=== PATIENT | female | born 1985 | race Caucasian/White ===

== ENCOUNTER 2019-08-30 20:04 | Emergency (ER) | payer BC, OTHER ==
[~2019-08-30] VITALS: Ht 170.2 cm; Wt 96.6 kg
--- NOTE | 2019-08-30 20:33 | NUR ---
URINE COLLECTED AND SENT TO LAB
--- NOTE | 2019-08-30 20:40 | NUR ---
BIBSELF C/O R FLANK PAIN X3 WEEKS, PROGRESSIVELY GETTING WORSE WITHIN PAST 3 DAYS. PT ALSO C/O DYSURIA, HEMATURIA, AND NAUSEA. PT DENIES HEAVY LIFTING, TRAUMA, FEVER. PT AAOX4. RESPIRATIONS EVEN AND UNLABORED. VITAL SIGNS STABLE. SKIN INTACT. AMBULATORY WITH STEADY GAIT. NO ACUTE DISTRESS NOTED AT THIS TIME. WILL CONTINUE TO MONITOR
--- NOTE | 2019-08-30 20:40 | NUR ---
Note undone in EDM - 08/30/19 at 2042 by GABE BIBSELF C/O L FLANK PAIN X3 WEEKS, PROGRESSIVELY GETTING WORSE WITHIN PAST 3 DAYS. PT ALSO C/O DYSURIA, HEMATURIA, AND NAUSEA. PT DENIES HEAVY LIFTING, TRAUMA, FEVER. PT AAOX4. RESPIRATIONS EVEN AND UNLABORED. VITAL SIGNS STABLE. SKIN INTACT. AMBULATORY WITH STEADY GAIT. NO ACUTE DISTRESS NOTED AT THIS TIME. WILL CONTINUE TO MONITOR
[2019-08-30] MEDS ORDERED: ONDANSETRON HCL/PF 4 MG/2 ML VIAL ONE (20:48)
[2019-08-30] MEDS ORDERED: MORPHINE SULFATE INJ 4 MG/ML DISP.SYRIN ONE ×2 (20:48→21:46)
[2019-08-30] MEDS ORDERED: MORPHINE SULFATE INJ 2 MG/ML DISP.SYRIN IV ONE ×2 (21:00→22:00)
[2019-08-30] MEDS ORDERED: IV NS 0.9% 1,000 ML BAG IV ONE (21:00)
[2019-08-30] MEDS ORDERED: ONDANSETRON HCL/PF 4 MG/2 ML VIAL IVP ONE (21:00)
[2019-08-30 21:11] LABS: BASOPHILS # (AUTO) 0.1 /CMM (0.0-0.2); BASOPHILS % (AUTO) 0.9 % (0.0-2.0); EOSINOPHILS % (AUTO) 0.4 % (0.0-6.0); HEMATOCRIT 38 % (33-45); HEMOGLOBIN 12.5 g/dL (11.5-14.8); LYMPHOCYTES # (AUTO) 3.1 /CMM (0.8-4.8); LYMPHOCYTES % (AUTO) 24.6 % (20.0-44.0); MEAN CORPUSCULAR HGB CONC 33 g/dl (31.0-36.0); MEAN CORPUSCULAR VOLUME 91 fL (82-100); MONOCYTES # (AUTO) 1.1 /CMM (0.1-1.30); MONOCYTES % (AUTO) 8.4 % (2.0-12.0); NEUTROPHILS # (AUTO) 8.2 /CMM (1.8-8.9); NEUTROPHILS % (AUTO) 65.7 % (43.0-81.0); PLATELET COUNT (AUTO) 312 /CMM (150-450); RED BLOOD CELL COUNT(AUTO) 4.16 MIL/uL (4.0-5.2); WHITE BLOOD COUNT (AUTO) 12.5 K/uL (4.3-11.0)
[2019-08-30 21:18] LABS: BILIRUBIN,URINE Negative (NEGATIVE); BLOOD, URINE Trace-intact Ery/uL (NEGATIVE); COLOR,URINE Yellow (YELLOW); KETONES,URINE Negative (NEGATIVE); LEUKOCYTE ESTERASE ,URINE Negative (NEGATIVE); NITRITE, URINE Negative (NEGATIVE); PH,URINE 8.5 (5.0-8.0); PROTEIN,URINE Negative (NEGATIVE); UGLUCOSE Negative (NEGATIVE)
[2019-08-30 21:19] LABS: APPEARANCE,URINE SLIGHTLY HAZY (CLEAR)
[2019-08-30 21:19] LABS: CALCIUM, SERUM 8.6 mg/dL (8.5-10.1); CREATININE 0.6 mg/dL (0.6-1.3); POTASSIUM 3.6 mmol/L (3.5-5.1)
[2019-08-30 21:24] LABS: ALBUMIN 3.8 g/dL (3.4-5.0); BILIRUBIN,DIRECT 0.1 mg/dL (0.0-0.2); BILIRUBIN,TOTAL 0.2 mg/dL (0.2-1.0); TOTAL PROTEIN, SERUM 7.7 g/dL (6.4-8.2)
[2019-08-30 21:26] LABS: SQUAMOUS EPITHELIAL CELL,UR MOD /HPF (None Seen)
[2019-08-30 21:27] LABS: BACTERIA,URINE Rare /HPF (None Seen); RBC,URINE 0-2 /HPF (0-2); WBC,URINE 0-2 /HPF (0-3)
[2019-08-30 22:10] LABS: BAND % (MANUAL) 3 % (0.0-5.0); LYMPHOCYTES % (MANUAL) 21 % (16-48); MONOCYTES % (MANUAL) 2 % (0-11.0); NEUTROPHILS % (MANUAL) 74 (42-76)
[2019-08-30] MEDS ORDERED: HYDROCODONE/APAP 5/325MG 1 EACH TABLET ONE (23:08)
--- NOTE | 2019-08-30 23:12 | NUR ---
Patient discharged to home in stable condition. Written and verbal after care instructions given. Patient verbalizes understanding of instruction.IV removed. Catheter intact and site benign. Pressure and 4x4 applied to site. No bleeding noted. Pt ambulatory with a steady gait
[2019-08-30 23:13] VITALS: BP 119/49
[2019-08-30] MEDS ORDERED: HYDROCODONE/APAP 5/325MG 1 EACH TABLET PO ONE (23:30)
== END 2019-08-30 23:14 | disposition home or self-care (01) ==
LOC: ER 20:11
DX: R10.11 Right upper quadrant pain (principal); R10.31 Right lower quadrant pain; R11.2 Nausea with vomiting, unspecified
CPT/HCPCS: 36415; 74176; 80048; 80076; 81001; 83690; 84703; 85025; 96361; 96374; 96375; 96376; 99284; J2270 ×2; J2405; J7030; 81000-TC

== ENCOUNTER 2019-10-14 21:17 | Emergency (ER) | payer BC ==
[~2019-10-14] VITALS: Ht 172.7 cm; Wt 95.3 kg
--- NOTE | 2019-10-14 21:36 | NUR ---
BIBS FROM HOME TO ER BED 6. AAOX4. NOT IN RESP DISTRESS. AMBULATORY. CAME IN FOR RLQ ABDOMINAL PAIN EXTENDING TOWARDS THE FLANKS AREA. PER PT ITS HAS BEEN GOING ON FOR THE PAST 2 WEEKS BUT WORST YESTERDAY AND TODAY. PT REPORTS PAIN 10/10 SHARP STABBING. PT IS ALSO REPORTING NAUSEA. CALOS BLAND AT THE BEDSIDE FOR EVAL. ORDERS RECEIVED NOTED AND WILL CARRY OUT
[2019-10-14 21:48] LABS: APPEARANCE,URINE Slightly Cloudy (CLEAR); BILIRUBIN,URINE Negative (NEGATIVE); BLOOD, URINE Trace-intact Ery/uL (NEGATIVE); COLOR,URINE Yellow (YELLOW); KETONES,URINE Negative (NEGATIVE); LEUKOCYTE ESTERASE ,URINE Trace (NEGATIVE); NITRITE, URINE Negative (NEGATIVE); PH,URINE 5.5 (5.0-8.0); PROTEIN,URINE Negative (NEGATIVE); UGLUCOSE Negative (NEGATIVE); UROBILINOGEN,URINE 0.2 EU/dL (0.2)
[2019-10-14 21:55] LABS: BASOPHILS # (AUTO) 0.1 /CMM (0.0-0.2); EOSINOPHILS % (AUTO) 0.6 % (0.0-6.0); HEMATOCRIT 36 % (33-45); HEMOGLOBIN 11.8 g/dL (11.5-14.8); LYMPHOCYTES # (AUTO) 3.8 /CMM (0.8-4.8); LYMPHOCYTES % (AUTO) 27.4 % (20.0-44.0); MEAN CORPUSCULAR HGB CONC 33 g/dl (31.0-36.0); MEAN CORPUSCULAR VOLUME 93 fL (82-100); MONOCYTES # (AUTO) 0.9 /CMM (0.1-1.30); MONOCYTES % (AUTO) 6.6 % (2.0-12.0); NEUTROPHILS # (AUTO) 8.9 /CMM (1.8-8.9); NEUTROPHILS % (AUTO) 64.4 % (43.0-81.0); PLATELET COUNT (AUTO) 339 /CMM (150-450); RED BLOOD CELL COUNT(AUTO) 3.91 MIL/uL (4.0-5.2); WHITE BLOOD COUNT (AUTO) 13.8 K/uL (4.3-11.0)
[2019-10-14] MEDS ORDERED: IV NS 0.9% 1,000 ML BAG IV ONE (22:00)
[2019-10-14] MEDS ORDERED: MORPHINE SULFATE INJ 2 MG/ML DISP.SYRIN IV ONE ×2 (22:00→23:00)
[2019-10-14] MEDS ORDERED: ONDANSETRON HCL/PF 4 MG/2 ML VIAL IVP ONE (22:00)
[2019-10-14] MEDS ORDERED: MORPHINE SULFATE INJ 4 MG/ML DISP.SYRIN ONE ×2 (22:02→23:28)
[2019-10-14] MEDS ORDERED: ONDANSETRON HCL/PF 4 MG/2 ML VIAL ONE (22:02)
[2019-10-14 22:11] LABS: BACTERIA,URINE Moderate /HPF (None Seen); MUCUS,URINE Moderate /LPF (None Seen); SQUAMOUS EPITHELIAL CELL,UR Few /HPF (None Seen)
[2019-10-14 22:14] LABS: BILIRUBIN,DIRECT 0.1 mg/dL (0.0-0.2); BILIRUBIN,TOTAL 0.2 mg/dL (0.2-1.0); CREATININE 0.5 mg/dL (0.6-1.3); POTASSIUM 3.4 mmol/L (3.5-5.1)
--- NOTE | 2019-10-14 22:49 | NUR ---
US AT BEDSIDE
--- NOTE | 2019-10-14 23:53 | NUR ---
followed up with ANATOLIY for US read
[2019-10-15 00:05] VITALS: BP 124/83
== END 2019-10-15 00:06 | disposition home or self-care (01) ==
LOC: ER 21:23
DX: N83.201 Unspecified ovarian cyst, right side (principal); R11.2 Nausea with vomiting, unspecified
CPT/HCPCS: 36415; 76856; 80048; 80076; 81001; 83690; 84702; 84703; 85025; 96361; 96374; 96375; 96376; 99284; J2270 ×2; J2405; J7030; 81000-TC

== ENCOUNTER 2020-06-14 18:44 | Emergency (ER) | payer BC ==
[~2020-06-14] VITALS: Ht 172.7 cm; Wt 93.0 kg
--- NOTE | 2020-06-14 19:05 | NUR ---
THE PATIENT BIBS FOR C/O RLQ ABDOMINAL PAIN W/ NAUSEA AND DIARRHEA SINCE 9AM. THE PATIENT RATES PAIN 8/10. RESPIRATION REGULAR AND UNLABORED. DENIES SOB. THE PATIENT IS IN ROOM #11. WILL CONTINUE TO MONITOR.
[2020-06-14] MEDS ORDERED: ONDANSETRON HCL/PF 4 MG/2 ML VIAL ONE (19:20)
[2020-06-14] MEDS ORDERED: HYDROMORPHONE 1 MG/1 ML DISP.SYRIN ONE ×3 (19:20→21:05)
[2020-06-14] MEDS ORDERED: IV NS 0.9% 1,000 ML BAG IV ONE (19:30)
[2020-06-14] MEDS ORDERED: ONDANSETRON HCL/PF 4 MG/2 ML VIAL IVP ONE (19:30)
[2020-06-14] MEDS ORDERED: MORPHINE SULFATE INJ 2 MG/ML DISP.SYRIN IV ONE (19:30)
[2020-06-14] MEDS ORDERED: HYDROMORPHONE 1 MG/1 ML DISP.SYRIN IV ONE ×3 (19:30→21:00)
[2020-06-14 19:36] LABS: BASOPHILS # (AUTO) 0.2 /CMM (0.0-0.2); BASOPHILS % (AUTO) 1.1 % (0.0-2.0); EOSINOPHILS % (AUTO) 0.3 % (0.0-6.0); HEMATOCRIT 39 % (33-45); HEMOGLOBIN 13.1 g/dL (11.5-14.8); LYMPHOCYTES # (AUTO) 3.4 /CMM (0.8-4.8); LYMPHOCYTES % (AUTO) 24.1 % (20.0-44.0); MEAN CORPUSCULAR HGB CONC 33 g/dl (31.0-36.0); MEAN CORPUSCULAR VOLUME 91 fL (82-100); MONOCYTES % (AUTO) 7.4 % (2.0-12.0); NEUTROPHILS # (AUTO) 9.5 /CMM (1.8-8.9); NEUTROPHILS % (AUTO) 67.1 % (43.0-81.0); PLATELET COUNT (AUTO) 316 /CMM (150-450); RED BLOOD CELL COUNT(AUTO) 4.28 MIL/uL (4.0-5.2); WHITE BLOOD COUNT (AUTO) 14.2 K/uL (4.3-11.0)
[2020-06-14 19:50] LABS: ALBUMIN 3.8 g/dL (3.4-5.0); BILIRUBIN,TOTAL 0.2 mg/dL (0.2-1.0); CALCIUM, SERUM 7.7 mg/dL (8.5-10.1); CREATININE 0.6 mg/dL (0.6-1.3); POTASSIUM 3.8 mmol/L (3.5-5.1); TOTAL PROTEIN, SERUM 7.7 g/dL (6.4-8.2)
[2020-06-14 19:50] LABS: BILIRUBIN,URINE Negative (NEGATIVE); COLOR,URINE YELLOW (YELLOW); LEUKOCYTE ESTERASE ,URINE Small (NEGATIVE); NITRITE, URINE Negative (NEGATIVE); PROTEIN,URINE Negative (NEGATIVE); UGLUCOSE Negative (NEGATIVE)
[2020-06-14 19:59] LABS: BACTERIA,URINE Rare /HPF (None Seen)
[2020-06-14] MEDS ORDERED: OXYC-133 PO (21:55)
[2020-06-14] MEDS ORDERED: ONDA4TAB5 PO (21:55)
--- NOTE | 2020-06-14 22:05 | NUR ---
Patient discharged to home in stable condition. Written and verbal after care instructions given. Patient verbalizes understanding of instruction.IV removed. Catheter intact and site benign. Pressure and 4x4 applied to site. No bleeding noted.
[2020-06-14 22:06] VITALS: BP 118/59
== END 2020-06-14 22:06 | disposition home or self-care (01) ==
LOC: ER 18:50
DX: R10.31 Right lower quadrant pain (principal); R11.2 Nausea with vomiting, unspecified; R19.7 Diarrhea, unspecified; Z90.49 Acquired absence of other specified parts of digestive tract; Z88.5 Allergy status to narcotic agent; Z79.899 Other long term (current) drug therapy
CPT/HCPCS: 36415; 74176; 76856; 80048; 80076; 81001; 83690; 84703; 85025; 87086; 96361; 96374; 96375; 96376; 99285; J1170 ×3; J2405; J7030

== ENCOUNTER 2020-06-16 19:43 | Emergency (ER) | payer BC ==
[~2020-06-16] VITALS: Ht 172.7 cm; Wt 92.1 kg
[~2020-06-16 19:43] MED LIST: ONDA4TAB5 PO; OXYC-133 PO
--- NOTE | 2020-06-16 19:53 | NUR ---
PT BIBSELF C/O LOWER ABD PAIN THAT RADIATES TO LOWER BACK SINCE FRI. PT AAOX4 BREATHING EVENLY AND UNLABORED. MD AT BEDSIDE FOR EVAL. PT STATES THAT SHE WAS "GIVEN PERCOCET RX FROM HER DR AND THAT IS THE ONLY TIME SHE GETS RELIEF". PT SKIN WARM, DRY, AND INTACT. PT ATTACHED TO MONITOR AND POX. PT GIVEN BLANKET AND CALL LIGHT WITHIN REACH.
[2020-06-16] MEDS ORDERED: ONDANSETRON HCL/PF 4 MG/2 ML VIAL IVP ONE (20:00)
[2020-06-16] MEDS ORDERED: IV NS 0.9% 1,000 ML BAG IV ONE (20:00)
[2020-06-16] MEDS ORDERED: HYDROMORPHONE 1 MG/1 ML DISP.SYRIN IV ONE ×2 (20:00→21:30)
--- NOTE | 2020-06-16 20:00 | NUR ---
IV INITIATED 22G LEFT HAND. BLOOD OBTAINED AND SENT TO LAB
[2020-06-16] MEDS ORDERED: ONDANSETRON HCL/PF 4 MG/2 ML VIAL ONE (20:02)
[2020-06-16] MEDS ORDERED: HYDROMORPHONE 1 MG/1 ML DISP.SYRIN ONE ×2 (20:03→21:18)
--- NOTE | 2020-06-16 21:13 | NUR ---
VERBAL ORDER 15MG TORADOL
[2020-06-16] MEDS ORDERED: KETOROLAC TROMETHAMINE 15 MG/ML VIAL ONE (21:14)
--- NOTE | 2020-06-16 21:19 | NUR ---
MD MADE AWARE OF PT REFUSIAL FOR TORADOL. MD VERBAL ORDER OF 1MG OF DILAUDED
--- NOTE | 2020-06-16 21:19 | NUR ---
PT REFUSED TORADOL.
[2020-06-16 21:29] LABS: CALCIUM, SERUM 9.3 mg/dL (8.5-10.1); CREATININE 0.7 mg/dL (0.6-1.3)
[2020-06-16 21:34] LABS: BASOPHILS # (AUTO) 0.1 /CMM (0.0-0.2); BASOPHILS % (AUTO) 0.7 % (0.0-2.0); EOSINOPHILS % (AUTO) 0.6 % (0.0-6.0); HEMATOCRIT 39 % (33-45); HEMOGLOBIN 12.7 g/dL (11.5-14.8); LYMPHOCYTES # (AUTO) 3.9 /CMM (0.8-4.8); LYMPHOCYTES % (AUTO) 32.5 % (20.0-44.0); MEAN CORPUSCULAR HGB CONC 33 g/dl (31.0-36.0); MEAN CORPUSCULAR VOLUME 91 fL (82-100); MONOCYTES # (AUTO) 0.9 /CMM (0.1-1.30); MONOCYTES % (AUTO) 7.8 % (2.0-12.0); NEUTROPHILS % (AUTO) 58.4 % (43.0-81.0); PLATELET COUNT (AUTO) 310 /CMM (150-450); RED BLOOD CELL COUNT(AUTO) 4.25 MIL/uL (4.0-5.2)
[2020-06-16 21:35] LABS: ALBUMIN 3.9 g/dL (3.4-5.0); BILIRUBIN,TOTAL 0.1 mg/dL (0.2-1.0); TOTAL PROTEIN, SERUM 8.2 g/dL (6.4-8.2)
[2020-06-16] MEDS ORDERED: CT SWABBABLE VALVE TRANS SET 1 EA INFUS.SET MC ONE (21:51)
[2020-06-16] MEDS ORDERED: IV NS 0.9% 250 ML IV ONE (21:51)
[2020-06-16] MEDS ORDERED: IOHEXOL-300 100 ML VIAL IV ONE (21:51)
--- NOTE | 2020-06-16 21:58 | NUR ---
RADIOLOGY AT BEDSIDE
[2020-06-16 22:18] LABS: BILIRUBIN,URINE NEGATIVE (NEGATIVE); COLOR,URINE YELLOW (YELLOW); LEUKOCYTE ESTERASE ,URINE MODERATE (NEGATIVE); NITRITE, URINE NEGATIVE (NEGATIVE); PH,URINE 6.5 (5.0-8.0); PROTEIN,URINE NEGATIVE (NEGATIVE); UGLUCOSE NEGATIVE (NEGATIVE); UROBILINOGEN,URINE 0.2 EU/dL (0.2)
--- NOTE | 2020-06-16 22:20 | NUR ---
RETURNED FROM RADIOLOGY
[2020-06-16 22:32] LABS: BACTERIA,URINE Many /HPF (None Seen); SQUAMOUS EPITHELIAL CELL,UR Many /HPF (None Seen)
--- NOTE | 2020-06-16 22:39 | NUR ---
Patient discharged to home in stable condition. Written and verbal after care instructions given. Patient verbalizes understanding of instruction. IV removed. Catheter intact and site benign. Pressure and 4x4 applied to site. No bleeding noted. Pt ambulatory with a steady gait.
[2020-06-16 22:44] VITALS: BP 135/74
== END 2020-06-16 22:39 | disposition home or self-care (01) ==
LOC: ER 19:47
DX: R10.31 Right lower quadrant pain (principal); R11.2 Nausea with vomiting, unspecified; Z90.49 Acquired absence of other specified parts of digestive tract; Z88.6 Allergy status to analgesic agent; Z79.899 Other long term (current) drug therapy
CPT/HCPCS: 36415; 74177; 76856; 80048; 80076; 81001; 83690; 84703; 85025; 96361; 96374; 96375; 96376; 99285; J1170 ×2; J1885; J2405; J7030; J7050; Q9967; 87086-TC

== ENCOUNTER 2020-11-18 21:04 | Emergency (ER) | payer BC, OTHER ==
[~2020-11-18] VITALS: Ht 172.7 cm; Wt 90.7 kg
--- NOTE | 2020-11-18 21:45 | NUR ---
PATIENT BIB WITH C/O ABD AND MID BACK PAIN FOR THE PAST WEEKS, WORSE TODAY. PATIENT STATES FEELS LIKE KIDNEY INFECTION. PATIENT IS A/O X 4, RR EVEN AND UNLABORED, NO SOB NOTED. PATIENT CONNECTED TO CARDIAC AND POX MONITOR.
[2020-11-18] MEDS ORDERED: ONDANSETRON HCL/PF 4 MG/2 ML VIAL ONE ×2 (21:57→22:50)
[2020-11-18] MEDS ORDERED: HYDROMORPHONE 1 MG/1 ML DISP.SYRIN ONE ×2 (21:58→23:51)
[2020-11-18] MEDS ORDERED: HYDROMORPHONE INJ 2 MG/ML DISP.SYRIN IV ONE (22:00)
[2020-11-18] MEDS ORDERED: IV NS 0.9% 1,000 ML BAG IV ONE (22:00)
[2020-11-18] MEDS ORDERED: ONDANSETRON HCL/PF 4 MG/2 ML VIAL IVP ONE (22:00)
[2020-11-18 22:01] LABS: BASOPHILS # (AUTO) 0.1 K/uL (0.0-0.2); BASOPHILS % (AUTO) 0.7 % (0.0-2.0); EOSINOPHILS % (AUTO) 0.4 % (0.0-6.0); HEMATOCRIT 38 % (33-45); HEMOGLOBIN 12.7 g/dL (11.5-14.8); LYMPHOCYTES # (AUTO) 3.4 K/uL (0.8-4.8); LYMPHOCYTES % (AUTO) 25.6 % (20.0-44.0); MEAN CORPUSCULAR HGB CONC 34 g/dl (31.0-36.0); MEAN CORPUSCULAR VOLUME 90 fL (82-100); MONOCYTES # (AUTO) 1.1 K/uL (0.1-1.30); MONOCYTES % (AUTO) 8.1 % (2.0-12.0); NEUTROPHILS # (AUTO) 8.7 K/uL (1.8-8.9); NEUTROPHILS % (AUTO) 65.2 % (43.0-81.0); PLATELET COUNT (AUTO) 326 K/uL (150-450); RED BLOOD CELL COUNT(AUTO) 4.21 MIL/uL (4.0-5.2); WHITE BLOOD COUNT (AUTO) 13.3 K/uL (4.3-11.0)
--- NOTE | 2020-11-18 22:23 | NUR ---
URINE COLLECTED AND SENT TO LAB
[2020-11-18] MEDS ORDERED: DICYCLOMINE HCL INJ 20 MG/2 ML AMPUL IM ONE ×2 (22:50→23:00)
[2020-11-18] MEDS ORDERED: ONDANSETRON HCL/PF 4 MG/2 ML VIAL IV ONE (23:00)
[2020-11-18 23:12] LABS: BILIRUBIN,URINE NEGATIVE (NEGATIVE); COLOR,URINE YELLOW (YELLOW); LEUKOCYTE ESTERASE ,URINE SMALL (NEGATIVE); NITRITE, URINE NEGATIVE (NEGATIVE); PROTEIN,URINE TRACE mg/dl (NEGATIVE); UGLUCOSE NEGATIVE (NEGATIVE); UROBILINOGEN,URINE 0.2 EU/dL (0.2)
[2020-11-18 23:24] LABS: CALCIUM, SERUM 8.5 mg/dL (8.5-10.1); POTASSIUM 3.4 mmol/L (3.5-5.1)
[2020-11-18 23:30] LABS: BACTERIA,URINE Many /HPF (None Seen); MUCUS,URINE Few /LPF (None Seen); SQUAMOUS EPITHELIAL CELL,UR Many /HPF (None Seen)
[2020-11-18 23:38] LABS: ALBUMIN 3.9 g/dL (3.4-5.0); BILIRUBIN,DIRECT 0.1 mg/dL (0.0-0.2); BILIRUBIN,TOTAL 0.4 mg/dL (0.2-1.0); TOTAL PROTEIN, SERUM 7.9 g/dL (6.4-8.2)
[2020-11-18] MEDS ORDERED: CEPHALEXIN MONOHYDRATE 500 MG CAPSULE PO ONE (23:51)
[2020-11-18] MEDS ORDERED: CEPH500T PO (23:53)
[2020-11-18] MEDS ORDERED: OXYC-128 PO (23:53)
[2020-11-18] MEDS ORDERED: ONDA4TAB5 PO (23:53)
[2020-11-19] MEDS ORDERED: CEPHALEXIN MONOHYDRATE 500 MG CAPSULE PO ONE
[2020-11-19] MEDS ORDERED: HYDROMORPHONE 1 MG/1 ML DISP.SYRIN IV ONE
--- NOTE | 2020-11-19 00:40 | NUR ---
Patient discharged to home in stable condition. Written and verbal after care instructions given. Patient verbalizes understanding of instruction. IV removed. Catheter intact and site benign. Pressure and 4x4 applied to site. No bleeding noted. Pt ambulatory with a steady gait
[2020-11-19 00:48] VITALS: BP 131/63
== END 2020-11-19 00:48 | disposition home or self-care (01) ==
LOC: ER 21:04
DX: N39.0 Urinary tract infection, site not specified (principal); R11.2 Nausea with vomiting, unspecified; Z90.49 Acquired absence of other specified parts of digestive tract; Z88.6 Allergy status to analgesic agent; Z79.899 Other long term (current) drug therapy
CPT/HCPCS: 36415; 80048; 80076; 81001; 83690; 84703; 85025; 87086; 96361; 96372; 96374; 96375; 96376 ×2; 99284; J0500; J1170 ×2; J2405 ×2; J7060

== ENCOUNTER 2021-02-02 15:09 | Emergency (ER) | payer BC ==
[~2021-02-02] VITALS: Ht 172.7 cm; Wt 93.4 kg
[~2021-02-02 15:09] MED LIST changes: +CEPH500T PO; +OXYC-128 PO
[2021-02-02 15:21] VITALS: BP 128/75
--- NOTE | 2021-02-02 15:22 | NUR ---
TO ER CHAIR, C/O DYSURIA X 2 DAYS; NO C/O RIGHT FLANK PAIN, AAOX3, BREATHING EVEN AND NON LABORED, AWAITING MD JONES
[2021-02-02] MEDS ORDERED: KETOROLAC TROMETHAMINE INJ 60 MG/2 ML VIAL IM ONE (16:00)
[2021-02-02 16:02] LABS: BILIRUBIN,URINE NEGATIVE (NEGATIVE); COLOR,URINE YELLOW (YELLOW); LEUKOCYTE ESTERASE ,URINE SMALL (NEGATIVE); NITRITE, URINE NEGATIVE (NEGATIVE); PROTEIN,URINE NEGATIVE (NEGATIVE); UGLUCOSE NEGATIVE (NEGATIVE); UROBILINOGEN,URINE 0.2 EU/dL (0.2)
[2021-02-02 16:17] LABS: BACTERIA,URINE 3+ /HPF (None Seen); RBC,URINE 21-50 /HPF (0-2); WBC,URINE 21-50 /HPF (0-3)
[2021-02-02] MEDS ORDERED: KETOROLAC TROMETHAMINE INJ 30 MG/ML VIAL ONE (16:18)
[2021-02-02] MEDS ORDERED: CEFTRIAXONE 1 G VIAL IM ONE (17:00)
[2021-02-02] MEDS ORDERED: oxyCODONE/APAP (5/325 MG) 1 UDTAB TABLET ONE (17:13)
[2021-02-02] MEDS ORDERED: CEFTRIAXONE 1 G VIAL ONE (17:14)
[2021-02-02] MEDS ORDERED: IBUP-1957 PO (17:15)
[2021-02-02] MEDS ORDERED: CIPR-262 PO (17:15)
[2021-02-02] MEDS ORDERED: oxyCODONE/APAP (5/325 MG) 1 UDTAB TABLET PO ONE (17:30)
[2021-02-02] MEDS ORDERED: PHEN-705 PO (17:51)
--- NOTE | 2021-02-02 18:18 | NUR ---
Patient discharged to home in stable condition. Written and verbal after care instructions given. Patient verbalizes understanding of instruction.
== END 2021-02-02 18:18 | disposition home or self-care (01) ==
LOC: ER 15:11
DX: N12 Tubulo-interstitial nephritis, not specified as acute or chronic (principal); Z90.49 Acquired absence of other specified parts of digestive tract; Z88.6 Allergy status to analgesic agent; Z79.899 Other long term (current) drug therapy
CPT/HCPCS: 81001; 84703; 87077; 87086; 87186; 96372 ×2; 99284; J0696; J1885

== ENCOUNTER 2021-02-04 19:07 | Inpatient (IN) | payer BC ==
[~2021-02-04] VITALS: Ht 172.7 cm; Wt 91.6 kg
[~2021-02-04 19:07] MED LIST changes: +CIPR-262 PO; +IBUP-1957 PO; +PHEN-705 PO
--- NOTE | 2021-02-04 19:45 | NUR ---
PATIENT PROVIDED WITH WARM BLANKETS FOR COMFORT.
--- NOTE | 2021-02-04 19:48 | NUR ---
URINE SPECIMEN COLLECTED AND SENT TO LAB.
[2021-02-04] MEDS ORDERED: KETOROLAC TROMETHAMINE 15 MG/ML VIAL ONE ×2 (20:15→20:58)
[2021-02-04] MEDS ORDERED: ONDANSETRON HCL/PF 4 MG/2 ML VIAL ONE (20:15)
[2021-02-04] MEDS ORDERED: HYDROMORPHONE 1 MG/1 ML DISP.SYRIN ONE ×2 (20:16→22:22)
[2021-02-04] MEDS ORDERED: PHEN-705 PO (20:16)
[2021-02-04] MEDS ORDERED: LEVO750T46 PO (20:16)
[2021-02-04] MEDS ORDERED: ONDANSETRON HCL/PF 4 MG/2 ML VIAL IVP ONE (20:30)
[2021-02-04] MEDS ORDERED: IV NS 0.9% 1,000 ML BAG IV ONE (20:30)
[2021-02-04] MEDS ORDERED: KETOROLAC TROMETHAMINE INJ 30 MG/ML VIAL IV ONE ×2 (20:30→21:00)
[2021-02-04] MEDS ORDERED: HYDROMORPHONE INJ 2 MG/ML DISP.SYRIN IV ONE (20:30)
[2021-02-04 20:51] LABS: BASOPHILS # (AUTO) 0.2 K/uL (0.0-0.2); BASOPHILS % (AUTO) 1.4 % (0.0-2.0); EOSINOPHILS % (AUTO) 0.8 % (0.0-6.0); HEMATOCRIT 37 % (33-45); HEMOGLOBIN 12.3 g/dL (11.5-14.8); LYMPHOCYTES # (AUTO) 4.1 K/uL (0.8-4.8); LYMPHOCYTES % (AUTO) 34.4 % (20.0-44.0); MEAN CORPUSCULAR HGB CONC 33 g/dl (31.0-36.0); MEAN CORPUSCULAR VOLUME 89 fL (82-100); MONOCYTES # (AUTO) 0.8 K/uL (0.1-1.30); MONOCYTES % (AUTO) 6.8 % (2.0-12.0); NEUTROPHILS # (AUTO) 6.8 K/uL (1.8-8.9); NEUTROPHILS % (AUTO) 56.6 % (43.0-81.0); PLATELET COUNT (AUTO) 381 K/uL (150-450); RED BLOOD CELL COUNT(AUTO) 4.18 MIL/uL (4.0-5.2)
[2021-02-04 21:08] LABS: CALCIUM, SERUM 8.3 mg/dL (8.5-10.1); CREATININE 0.7 mg/dL (0.6-1.3); POTASSIUM 3.7 mmol/L (3.5-5.1)
[2021-02-04] MEDS ORDERED: SULF1TAB48 PO (21:17)
[2021-02-04] MEDS ORDERED: LEVOFLOXACIN 750 MG /D5W 150ML 150 ML IV ONE (22:29)
[2021-02-04] MEDS ORDERED: LEVOFLOXACIN 750 MG /D5W 150ML PIGGYBACK IV ONE (22:30)
[2021-02-04] MEDS ORDERED: HYDROMORPHONE 1 MG/1 ML DISP.SYRIN IV ONE (22:30)
[2021-02-05] MEDS ORDERED: ACETAMINOPHEN 325 MG TABLET PO PRN
[2021-02-05] MEDS ORDERED: MAGNESIUM HYDROXIDE 30 ML UDC PO PRN
[2021-02-05] MEDS ORDERED: MAG HYDROX/AL HYDROX/SIMETH 30 ML UDC PO PRN
[2021-02-05] MEDS ORDERED: Z GUARD REMEDY 2 OZ OINT TP PRN
[2021-02-05] MEDS ORDERED: ZOLPIDEM TARTRATE 5 MG TABLET PO PRN
[2021-02-05] MEDS ORDERED: MORPHINE SULFATE INJ 2 MG/ML DISP.SYRIN IV PRN
--- NOTE | 2021-02-05 00:06 | NUR ---
MRSA SWAB COLLECTED AND SENT TO LAB. PATIENT'S BELONGINGS LIST DONE.
[2021-02-05] MEDS ORDERED: HYDROMORPHONE 1 MG/1 ML DISP.SYRIN ONE (00:36)
[2021-02-05] MEDS: HYDROMORPHONE 1 MG/1 ML DISP.SYRIN IV PRN ×6 (00:40→21:34)
--- NOTE | 2021-02-05 00:50 | NUR ---
REPORT GIVEN TO DENZEL BOYD FOR SANA
[2021-02-05 01:00] VITALS: BP 126/2
--- NOTE | 2021-02-05 01:00 | NUR ---
MS FASHION ADVISER NOTES RECEIVED FROM ER,PER JULIANA THIS 35 YO FEMALE,ALERT,ORIENTED X4,NO SOB.SALINE LOCK LEFT HAND NOT WORKING,NO SKIN ISSUES,AMBULATORY.CHIEF COMPLAINTS OF FLANK AND BLADDER PAIN AND WAS SEEN ON FRIDAY OF THE SAME PROBLEMS.DX, PYELONEPHRITIS. NEGATIVE FOR COVID,AND COMPLETED TWO DOSES OF COVID VACCINE.PATIENT REQUEST FLU SHOT ON DISCHARGE.WILL CONTINUE TO MONITOR FOR FLANK PAIN.CALL LIGHT IN REACH,NEEDS ANTICIPATED.
[2021-02-05] MEDS: IV 1/2NS 1000 ML 1,000 ML IV PRN ×3 (01:26→12:28)
--- NOTE | 2021-02-05 01:30 | NUR ---
MS RN NOTES SALINE LOCK LEFT HAND NOT WORKING,NO BLOOD RETURN AND PAINFUL WHEN FLUSH.NEW SALINE LOCK PLACE ON RIGHT HAND #22.
--- NOTE | 2021-02-05 01:37 | NUR ---
MS RN NOTES STARTED ON IVF 1/2 NS AT 100ML/HR RATE
[2021-02-05] MEDS: HYDROCODONE/APAP 5/325MG TABLET PO PRN (02:13)
--- NOTE | 2021-02-05 02:13 | NUR ---
MS RN NOTES PAIN MANAGEMENT C/O FLANK PAIN 7/10 ON PAIN SCALE,MOANS,MEDICATED WITH NORCO 5/325MG,1 TAB PO ORDERED.WILL MONITOR FOR RELIEF
--- NOTE | 2021-02-05 04:57 | NUR ---
MS RN NOTES C/O LEFT FLANK PAIN 8/10 ON PAIN SCALE,DILAUDID 1MG IV GIVEN ORDERED.
[2021-02-05 06:37] LABS: BASOPHILS # (AUTO) 0.1 K/uL (0.0-0.2); BASOPHILS % (AUTO) 0.5 % (0.0-2.0); EOSINOPHILS % (AUTO) 0.9 % (0.0-6.0); HEMATOCRIT 32 % (33-45); HEMOGLOBIN 10.6 g/dL (11.5-14.8); LYMPHOCYTES % (AUTO) 38.4 % (20.0-44.0); MEAN CORPUSCULAR HGB CONC 34 g/dl (31.0-36.0); MEAN CORPUSCULAR VOLUME 89 fL (82-100); MONOCYTES # (AUTO) 0.9 K/uL (0.1-1.30); NEUTROPHILS # (AUTO) 5.4 K/uL (1.8-8.9); NEUTROPHILS % (AUTO) 51.2 % (43.0-81.0); PLATELET COUNT (AUTO) 319 K/uL (150-450); RED BLOOD CELL COUNT(AUTO) 3.52 MIL/uL (4.0-5.2); WHITE BLOOD COUNT (AUTO) 10.5 K/uL (4.3-11.0)
--- NOTE | 2021-02-05 06:53 | NUR ---
MS RN NOTES IN BED,STILL WITH ON AND OFF FLANK PAIN,MANAGE WITH DILAUDID 1MG IV ORDERED.,IVF INFUSING WELL VIA IV PUMP ON RIGHT HAND.CALL LIGHT IN REACH,NEEDS ATTENDED.
[2021-02-05 07:17] LABS: CALCIUM, SERUM 7.5 mg/dL (8.5-10.1); CREATININE 0.6 mg/dL (0.6-1.3); MAGNESIUM 1.8 mg/dL (1.8-2.4); PHOSPHORUS 3.2 mg/dL (2.5-4.9); POTASSIUM 3.7 mmol/L (3.5-5.1)
--- NOTE | 2021-02-05 07:30 | NUR ---
MS RN OPENING NOTES RECEIVED PATIENT RESTING ON BED AND A/O X4. ON ROOM AIR TOLERATING WELL. NO SOB NOTED. NOT IN DISTRESS. WITH NO COMPLAINTS OF PAIN AT THIS TIME. WITH IV ACCESS AT RIGHT HAND G22 WITH 1/2 NS AT 100ML/HR INFUSING WELL. SAFETY MEASURES IN PLACE. CALL LIGHT WITHIN REACH. BED ON LOWEST AND LOCKED POSITION, SIDE RAILS UP X2. WILL CONTINUE TO MONITOR.
[2021-02-05] MEDS: ONDANSETRON HCL/PF 4 MG/2 ML VIAL IVP PRN ×2 (07:57→21:28)
[2021-02-05 08:00] VITALS: BP 107/49
[2021-02-05] MEDS: PANTOPRAZOLE 40 MG TABLET.DR PO SCH (08:00)
[2021-02-05] MEDS: PHENAZOPYRIDINE HCL 200 MG TABLET PO SCH ×3 (08:49→16:46)
[2021-02-05] MEDS: IBUPROFEN 400 MG TABLET PO SCH ×3 (08:49→16:46)
[2021-02-05] MEDS ORDERED: IBUPROFEN 800 MG TABLET PO SCH (09:00)
[2021-02-05 16:17] VITALS: BP 103/58
--- NOTE | 2021-02-05 18:31 | NUR ---
MS RN CLOSING NOTES PATIENT RESTING ON BED AND A/O X4. ON ROOM AIR TOLERATING WELL. NO SOB NOTED. NOT IN DISTRESS. WITH NO COMPLAINTS OF PAIN AT THIS TIME. WITH IV ACCESS AT RIGHT HAND G22 WITH 1/2 NS AT 100ML/HR INFUSING WELL. DUE MEDS GIVEN. SAFETY MEASURES IN PLACE. CALL LIGHT WITHIN REACH. BED ON LOWEST AND LOCKED POSITION, SIDE RAILS UP X2. WILL ENDORSE TO NEXT SHIFT FOR SANA.
--- NOTE | 2021-02-05 19:10 | NUR ---
RN ms opening notes Received Pt from morning nurse. Pt is resting in bed comfortably. Pt is alert and orientedX4. respiration is normal in room air. No SOB. No S/S of distress noted. VS is stable. Pt is able to ambulates with a steady gait. IV sites at R hand# 22 is clean, intact and infusing well 1/2 NS @ 100ml/hr. Safety precautions is maintained. Bed at low position, brakes locked, side rails upX2 and call light is within reach. Will continue to monitor.
[2021-02-05 20:00] VITALS: BP 100/37
[2021-02-05 20:49] VITALS: BP 100/37
[2021-02-05 21:00] VITALS: BP 128/81
[2021-02-05] MEDS: LEVOFLOXACIN 500 MG /D5W 100ML 500 MG in PREMIX 1 EA IV SCH ×2 (21:08→22:00)
[2021-02-05] MEDS ORDERED: LEVOFLOXACIN 500 MG /D5W 100ML 500 MG/100 ML PIGGYBACK IV SCH (22:00)
--- NOTE | 2021-02-05 22:08 | NUR ---
RN notes Pt is complaining of itchy on R and L arm after levaquin abx. This is Pt first time getting levaquin abx. Stop the abx. is notified. Ice pack is applied and applied zguard. Will continue to monitor.
--- NOTE | 2021-02-05 22:17 | NUR ---
RN notes Checked Pt. Pt stated Pt is getting relieved no more itchy on R and L arm. MD notified. Will continue to monitor.
[2021-02-05] MEDS ORDERED: CEFTRIAXONE 1 G in IV D5W 50 ML IV SCH (23:00)
--- NOTE | 2021-02-05 23:00 | NUR ---
RN notes Received order from for Rocephin 1 mg/ Q 24. Order carried out.
[2021-02-05] MEDS ORDERED: CEFTRIAXONE 1 G VIAL ONE (23:22)
[2021-02-06] MEDS: IV 1/2NS 1000 ML 1,000 ML IV PRN (00:28)
[2021-02-06] MEDS: HYDROMORPHONE 1 MG/1 ML DISP.SYRIN IV PRN ×5 (01:39→18:07)
[2021-02-06] MEDS: HYDROCODONE/APAP 5/325MG TABLET PO PRN (03:07)
--- NOTE | 2021-02-06 06:34 | NUR ---
RN ms closing notes Pt is resting in bed comfortably. Pt is alert and orientedX4. respiration is normal in room air. No SOB. No S/S of distress noted. VS is stable. Pt is able to ambulates with a steady gait. IV sites at R hand# 22 is clean, intact and SL. Iv sites at L hand# 24 is clean, intact and infusing well 1/2 NS @ 100ml/hr. Routine meds were given as ordered. Kept Pt clean, dry and comfortable. Safety precautions is maintained. Bed at low position, brakes locked, side rails upX2 and call light is within reach. Will endorse to am nurse for SANA.
--- NOTE | 2021-02-06 07:50 | NUR ---
RN OPENING NOTE PATIENT IN BED RESTING, AWAKE. A/O x4. NO S/S PAIN NOTED AT THIS TIME. PATIENT COMPLAINED OF NAUSEA, NAUSEA MEDICATION GIVEN. ON ROOM AIR AND TOLERATING WELL. NO SHORTNESS OF BREATH NOTED. IV SITES R HAND #22G AND L HAND #24G INTACT AND PATENT, FLUSHING WELL. SAFETY PRECAUTIONS IN PLACE: BED IN LOWEST, LOCKED POSITION, CALL LIGHT AND BEDSIDE TABLE WITHIN REACH. WILL CONTINUE TO MONITOR.
[2021-02-06] MEDS: PANTOPRAZOLE 40 MG TABLET.DR PO SCH (07:59)
[2021-02-06 08:00] VITALS: BP 11/95
[2021-02-06] MEDS: ONDANSETRON HCL/PF 4 MG/2 ML VIAL IVP PRN (08:00)
[2021-02-06] MEDS: PHENAZOPYRIDINE HCL 200 MG TABLET PO SCH ×3 (08:00→18:07)
[2021-02-06] MEDS: IBUPROFEN 400 MG TABLET PO SCH ×3 (08:01→17:00)
[2021-02-06] MEDS ORDERED: ONDANSETRON HCL/PF 4 MG/2 ML VIAL IVP PRN (11:30)
[2021-02-06] MEDS ORDERED: LEVO500T90 PO (12:24)
[2021-02-06] MEDS ORDERED: INFLUENZA VACCINE 2021-22 0.5 ML DISP.SYRIN IM ONE (13:30)
--- NOTE | 2021-02-06 14:03 | NUR ---
RN NOTE PRESCRIPTION FOR LEVOFLOXACIN BY DR GÉNESIS CALVO GIVEN. CURRENT ALLERGY OF LEVOFLOXACIN PRESENT. PT REPORTED LOCALIZED RASH, ITCHING AND BURNING DURING ADMINISTRATION. PER NIGHT RN, DOSE OF LEVOFLOXACIN HELD, NOTIFIED, AND ALLERGY DOCUMENTED. CONTACTED DR ABOUT PRESCRIPTION, OKAYED BY DR TO GIVE PRESCRIPTION. CONTACTED PHARMACIST JOS ABOUT PRESCRIPTION ,OKAYED TO GIVE PRESCRIPTION AND EDUCATE PT. EDUCATED PT TO CONTACT OR GO TO CLOSEST ER IF REACTION OCCURS.
[2021-02-06 16:00] VITALS: BP 103/67
--- NOTE | 2021-02-06 19:09 | NUR ---
STATE HISTORICAL SOCIETY DIRECTOR NOTE PT DISCHARGED HOME. PRESCRIPTIONS GIVEN TO PT. EDUCATION GIVEN TO PT. SKIN INTACT. BELONGINGS CHECKED AND GIVEN TO PT. IV LINE REMOVED. ID BAND REMOVED. PT TRANSPORTED HOME VIA PRIVATE CAR ACCOMPANIED BY FAMILY.
== END 2021-02-06 18:00 | disposition home or self-care (01) | DRG 690 ==
LOC: ER 19:09 → MED 02-05 00:36
PROVIDERS: ADMIT Student in an Organized Health Care Education/Training Program
DX: N10 Acute pyelonephritis (principal); B96.4 Proteus (mirabilis) (morganii) as the cause of diseases classified elsewhere; K58.9 Irritable bowel syndrome, unspecified; Z20.822 Contact with and (suspected) exposure to COVID-19; Z90.49 Acquired absence of other specified parts of digestive tract; Z88.5 Allergy status to narcotic agent; Z79.899 Other long term (current) drug therapy; Z82.49 Family history of ischemic heart disease and other diseases of the circulatory system; E66.9 Obesity, unspecified; Z68.30 Body mass index [BMI] 30.0-30.9, adult
CPT/HCPCS: 36415; 76770-TC; 80048-TC; 83735-TC; 84100-TC; 85025-TC; 87081-TC; A4216; C9803; G0378; J0696; J1170; J1885; J1956; J2405; J3490; J7030; J7060; Q2036

== ENCOUNTER 2021-04-11 18:44 | Emergency (ER) | payer BC ==
[~2021-04-11] VITALS: Ht 172.7 cm; Wt 95.3 kg
[~2021-04-11 18:44] MED LIST changes: -CEPH500T PO; -CIPR-262 PO; +LEVO500T90 PO; -ONDA4TAB5 PO; -OXYC-128 PO; -OXYC-133 PO; -PHEN-705 PO
--- NOTE | 2021-04-11 19:05 | NUR ---
PT BIBSELF C/O MIDEPIGASTRIC PAIN THAT RADIATES TO MID PAIN WITH N/V. PT AAOX4 BREATHING EVENLY AND UNLABORED. PT ATTACHED TO SHEFALI AND JOSSELIN. AT BEDSIDE. PT GIVEN BLANKET AND CALL LIGHT WITHIN REACH
[2021-04-11] MEDS ORDERED: HYDROMORPHONE 1 MG/1 ML DISP.SYRIN ONE (19:50)
[2021-04-11] MEDS ORDERED: ONDANSETRON HCL/PF 4 MG/2 ML VIAL ONE (19:50)
--- NOTE | 2021-04-11 19:50 | NUR ---
URINE SENT TO LAB
[2021-04-11] MEDS ORDERED: HYDROMORPHONE 1 MG/1 ML DISP.SYRIN IV ONE (20:00)
[2021-04-11] MEDS ORDERED: ONDANSETRON HCL/PF 4 MG/2 ML VIAL IV ONE (20:00)
[2021-04-11] MEDS ORDERED: IV NS 0.9% 1,000 ML IV ONE (20:00)
--- NOTE | 2021-04-11 20:01 | NUR ---
ADDENDUM: Intravenous End Time Documentation: Normal saline 1 liter (IV-WO) : start time: 2000 PM ; end time: 2100 PM : IV site: LAC PIV # 20 Port # 1
[2021-04-11 20:16] LABS: BASOPHILS % (AUTO) 0.4 % (0.0-2.0); EOSINOPHILS % (AUTO) 0.8 % (0.0-6.0); HEMATOCRIT 37 % (33-45); HEMOGLOBIN 12.3 g/dL (11.5-14.8); LYMPHOCYTES # (AUTO) 3.9 K/uL (0.8-4.8); LYMPHOCYTES % (AUTO) 36.1 % (20.0-44.0); MEAN CORPUSCULAR HGB CONC 34 g/dl (31.0-36.0); MEAN CORPUSCULAR VOLUME 88 fL (82-100); MONOCYTES % (AUTO) 9.1 % (2.0-12.0); NEUTROPHILS # (AUTO) 5.7 K/uL (1.8-8.9); NEUTROPHILS % (AUTO) 53.6 % (43.0-81.0); PLATELET COUNT (AUTO) 310 K/uL (150-450); RED BLOOD CELL COUNT(AUTO) 4.13 MIL/uL (4.0-5.2); WHITE BLOOD COUNT (AUTO) 10.7 K/uL (4.3-11.0)
[2021-04-11 20:19] LABS: BILIRUBIN,URINE NEGATIVE (NEGATIVE); COLOR,URINE YELLOW (YELLOW); LEUKOCYTE ESTERASE ,URINE MODERATE (NEGATIVE); NITRITE, URINE NEGATIVE (NEGATIVE); PROTEIN,URINE NEGATIVE (NEGATIVE); UGLUCOSE NEGATIVE (NEGATIVE); UROBILINOGEN,URINE 0.2 EU/dL (0.2)
[2021-04-11 20:31] LABS: BACTERIA,URINE 1+ /HPF (None Seen); SQUAMOUS EPITHELIAL CELL,UR Few /HPF (None Seen); WBC,URINE 21-50 /HPF (0-3)
[2021-04-11 20:34] LABS: CALCIUM, SERUM 8.4 mg/dL (8.5-10.1); CREATININE 0.7 mg/dL (0.6-1.3); POTASSIUM 3.8 mmol/L (3.5-5.1)
[2021-04-11] MEDS ORDERED: CIPR500T5 PO (21:45)
[2021-04-11] MEDS ORDERED: ONDA4TAB5 PO (21:47)
--- NOTE | 2021-04-11 22:04 | NUR ---
Patient discharged to home in stable condition. Written and verbal after care instructions given. Patient verbalizes understanding of instruction. IV removed. Catheter intact and site benign. Pressure and 4x4 applied to site. No bleeding noted. PT ambulatory with a steady gait
[2021-04-11 22:09] VITALS: BP 108/75
== END 2021-04-11 22:04 | disposition home or self-care (01) ==
LOC: ER 18:48
DX: N12 Tubulo-interstitial nephritis, not specified as acute or chronic (principal); R19.7 Diarrhea, unspecified; Z90.49 Acquired absence of other specified parts of digestive tract; Z88.6 Allergy status to analgesic agent
CPT/HCPCS: 36415; 80048; 81001; 83690; 84703; 85025; 87086; 96361; 96374; 96375; 99285; J1170; J2405; J7030

== ENCOUNTER 2021-04-18 18:32 | Emergency (ER) | payer BC ==
[~2021-04-18] VITALS: Ht 172.7 cm; Wt 95.3 kg
[~2021-04-18 18:32] MED LIST changes: +CIPR500T5 PO; +ONDA4TAB5 PO
--- NOTE | 2021-04-18 20:00 | NUR ---
PT BIBS C/O DIFFUSED ABDOMINAL PAIN RADIAITING TO BILATERAL FLANKS. 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 PATIENT ALERT AND ORIENTED X3. AMBULATORY WITH NON LABORED BREATHING.
--- NOTE | 2021-04-18 20:01 | NUR ---
URINE COLLECTED AND SENT TO LAB
[2021-04-18] MEDS ORDERED: HYDROMORPHONE INJ 2 MG/ML DISP.SYRIN ONE (20:20)
[2021-04-18] MEDS ORDERED: ONDANSETRON HCL/PF 4 MG/2 ML VIAL ONE (20:21)
--- NOTE | 2021-04-18 20:23 | NUR ---
ekg done at bedside
[2021-04-18] MEDS ORDERED: IV NS 0.9% 1,000 ML BAG IV ONE (20:30)
[2021-04-18] MEDS ORDERED: HYDROMORPHONE INJ 2 MG/ML DISP.SYRIN IV ONE (20:30)
[2021-04-18] MEDS ORDERED: ONDANSETRON HCL/PF 4 MG/2 ML VIAL IVP ONE (20:30)
[2021-04-18 21:24] LABS: BASOPHILS % (AUTO) 0.3 % (0.0-2.0); EOSINOPHILS % (AUTO) 0.6 % (0.0-6.0); HEMATOCRIT 36 % (33-45); HEMOGLOBIN 11.5 g/dL (11.5-14.8); LYMPHOCYTES % (AUTO) 30.6 % (20.0-44.0); MEAN CORPUSCULAR HGB CONC 32 g/dl (31.0-36.0); MEAN CORPUSCULAR VOLUME 90 fL (82-100); MONOCYTES # (AUTO) 0.9 K/uL (0.1-1.30); MONOCYTES % (AUTO) 6.8 % (2.0-12.0); NEUTROPHILS % (AUTO) 61.7 % (43.0-81.0); PLATELET COUNT (AUTO) 290 K/uL (150-450); RED BLOOD CELL COUNT(AUTO) 3.95 MIL/uL (4.0-5.2)
[2021-04-18 21:29] LABS: BILIRUBIN,URINE NEGATIVE (NEGATIVE); COLOR,URINE YELLOW (YELLOW); LEUKOCYTE ESTERASE ,URINE NEGATIVE (NEGATIVE); NITRITE, URINE NEGATIVE (NEGATIVE); PROTEIN,URINE NEGATIVE (NEGATIVE); UGLUCOSE NEGATIVE (NEGATIVE); UROBILINOGEN,URINE 0.2 EU/dL (0.2)
[2021-04-18 21:39] LABS: RBC,URINE 0-2 /HPF (0-2)
[2021-04-18 21:40] LABS: BACTERIA,URINE 1+ /HPF (None Seen); SQUAMOUS EPITHELIAL CELL,UR Few /HPF (None Seen); WBC,URINE 0-2 /HPF (0-3)
--- NOTE | 2021-04-18 21:46 | NUR ---
PT LAYING IN BED, KEPT COMFORTABLE, NEEDS MET
[2021-04-18 21:54] LABS: CALCIUM, SERUM 8.2 mg/dL (8.5-10.1); CREATININE 0.7 mg/dL (0.6-1.3); POTASSIUM 4.1 mmol/L (3.5-5.1)
[2021-04-18 22:03] LABS: ALBUMIN 3.5 g/dL (3.4-5.0); BILIRUBIN,DIRECT 0.1 mg/dL (0.0-0.2); BILIRUBIN,TOTAL 0.1 mg/dL (0.2-1.0); TOTAL PROTEIN, SERUM 7.3 g/dL (6.4-8.2)
--- NOTE | 2021-04-18 22:05 | NUR ---
PT NEEDS MET, VS STABLE
[2021-04-18] MEDS ORDERED: HYDROMORPHONE 1 MG/1 ML DISP.SYRIN ONE (22:35)
[2021-04-18] MEDS ORDERED: HYDROMORPHONE 1 MG/1 ML DISP.SYRIN IV ONE (23:00)
[2021-04-18] MEDS ORDERED: IBUP-1955 PO (23:22)
--- NOTE | 2021-04-18 23:35 | NUR ---
Patient discharged to home in stable condition. Written and verbal after care instructions given. Patient verbalizes understanding of instruction.
--- NOTE | 2021-04-18 23:35 | NUR ---
IV removed. Catheter intact and site benign. Pressure and 4x4 applied to site. No bleeding noted.
[2021-04-18 23:36] VITALS: BP 110/68
== END 2021-04-18 23:37 | disposition home or self-care (01) ==
LOC: ER 18:32
DX: Z90.49 Acquired absence of other specified parts of digestive tract (principal); Z88.6 Allergy status to analgesic agent; Z79.899 Other long term (current) drug therapy
CPT/HCPCS: 36415; 71045; 76770; 80048; 80076; 81001; 83690; 84703; 85025; 93005; 96361; 96374; 96375; 96376; 99285; J1170 ×2; J2405; J7030

== ENCOUNTER 2021-08-04 20:43 | Emergency (ER) | payer BC ==
[~2021-08-04] VITALS: Ht 172.7 cm; Wt 95.3 kg
[~2021-08-04 20:43] MED LIST changes: +IBUP-1955 PO
--- NOTE | 2021-08-04 21:05 | NUR ---
BIBS C/O ABDOMINAL PAIN RADIATING R FLANK AND DIARRHEA X 3 DAYS. LMP . PATIENT BEEN TAKING PERCOCET FOR PAIN. PAIN SCALE IS 10/10
[2021-08-04] MEDS ORDERED: IV NS 0.9% 1,000 ML BAG IV ONE (21:30)
--- NOTE | 2021-08-04 21:45 | NUR ---
IV CANNULA G20 INSERTED ON LEFT METACARPAL VEIN. FLUSHED, 0.9NS 1L BOLUS STARTED. END TIME 2220H
[2021-08-04 21:47] LABS: BASOPHILS # (AUTO) 0.1 K/uL (0.0-0.2); EOSINOPHILS % (AUTO) 0.4 % (0.0-6.0); HEMATOCRIT 38 % (33-45); HEMOGLOBIN 12.3 g/dL (11.5-14.8); LYMPHOCYTES # (AUTO) 3.4 K/uL (0.8-4.8); LYMPHOCYTES % (AUTO) 24.7 % (20.0-44.0); MEAN CORPUSCULAR HGB CONC 33 g/dl (31.0-36.0); MEAN CORPUSCULAR VOLUME 88 fL (82-100); MONOCYTES # (AUTO) 1.1 K/uL (0.1-1.30); MONOCYTES % (AUTO) 7.7 % (2.0-12.0); NEUTROPHILS % (AUTO) 66.2 % (43.0-81.0); PLATELET COUNT (AUTO) 373 K/uL (150-450); RED BLOOD CELL COUNT(AUTO) 4.26 MIL/uL (4.0-5.2); WHITE BLOOD COUNT (AUTO) 13.6 K/uL (4.3-11.0)
[2021-08-04 22:01] LABS: BILIRUBIN,URINE NEGATIVE (NEGATIVE); COLOR,URINE YELLOW (YELLOW); LEUKOCYTE ESTERASE ,URINE NEGATIVE (NEGATIVE); NITRITE, URINE NEGATIVE (NEGATIVE); PH,URINE 5.5 (5.0-8.0); PROTEIN,URINE NEGATIVE (NEGATIVE); UGLUCOSE NEGATIVE (NEGATIVE); UROBILINOGEN,URINE 0.2 EU/dL (0.2)
[2021-08-04 22:05] LABS: CALCIUM, SERUM 8.5 mg/dL (8.5-10.1); CREATININE 0.8 mg/dL (0.6-1.3); POTASSIUM 3.5 mmol/L (3.5-5.1)
[2021-08-04 22:11] LABS: ALBUMIN 3.8 g/dL (3.4-5.0); BILIRUBIN,TOTAL 0.2 mg/dL (0.2-1.0); TOTAL PROTEIN, SERUM 7.8 g/dL (6.4-8.2)
[2021-08-04 22:16] LABS: BACTERIA,URINE Moderate /HPF (None Seen); WBC,URINE 0-2 /HPF (0-3)
[2021-08-04] MEDS ORDERED: ACETAMINOPHEN 325 MG TABLET PO ONE (22:30)
[2021-08-04] MEDS ORDERED: HYDROMORPHONE 1 MG/1 ML DISP.SYRIN IV ONE (22:30)
[2021-08-04] MEDS ORDERED: ONDANSETRON HCL/PF 4 MG/2 ML VIAL IV ONE (22:30)
[2021-08-04] MEDS ORDERED: HYDROMORPHONE 1 MG/1 ML DISP.SYRIN ONE (22:42)
[2021-08-04] MEDS ORDERED: ACETAMINOPHEN ES 500 MG TABLET ONE (22:42)
[2021-08-04] MEDS ORDERED: ONDANSETRON HCL/PF 4 MG/2 ML VIAL ONE (22:42)
--- NOTE | 2021-08-04 23:50 | NUR ---
lead technical writer at bedside
[2021-08-05] MEDS ORDERED: HYDR2TAB4 PO (00:29)
[2021-08-05] MEDS ORDERED: ONDANSETRON HCL/PF 4 MG/2 ML VIAL ONE (00:35)
[2021-08-05] MEDS ORDERED: HYDROMORPHONE HCL 2 MG TABLET ONE (00:39)
[2021-08-05 00:43] LABS: BILIRUBIN,URINE NEGATIVE (NEGATIVE); LEUKOCYTE ESTERASE ,URINE NEGATIVE (NEGATIVE); NITRITE, URINE NEGATIVE (NEGATIVE); PROTEIN,URINE NEGATIVE (NEGATIVE); UGLUCOSE NEGATIVE (NEGATIVE); UROBILINOGEN,URINE 0.2 EU/dL (0.2)
--- NOTE | 2021-08-05 00:50 | NUR ---
Patient discharged to home in stable condition. Written and verbal after care instructions given. Patient verbalizes understanding of instruction. IV line removed and Pt ambulatory with steady gait. picked up by cierraer.
[2021-08-05 00:51] VITALS: BP 123/72
[2021-08-05] MEDS ORDERED: HYDROMORPHONE HCL 2 MG TABLET PO PRN (01:00)
[2021-08-05] MEDS ORDERED: ONDANSETRON HCL/PF - ER 4 MG/2 ML VIAL IV ONE (01:00)
[2021-08-05 01:03] LABS: COLOR,URINE YELLOW (YELLOW)
[2021-08-05 06:33] LABS: BACTERIA,URINE Few /HPF (None Seen); RBC,URINE 0-2 /HPF (0-2); SQUAMOUS EPITHELIAL CELL,UR Few /HPF (None Seen); WBC,URINE 0-2 /HPF (0-3)
== END 2021-08-05 00:51 | disposition home or self-care (01) ==
LOC: ER 20:47
DX: R19.7 Diarrhea, unspecified (principal); G89.29 Other chronic pain; R10.31 Right lower quadrant pain; K58.9 Irritable bowel syndrome, unspecified; R11.0 Nausea; D72.829 Elevated white blood cell count, unspecified; Z88.6 Allergy status to analgesic agent; Z90.49 Acquired absence of other specified parts of digestive tract; Z79.899 Other long term (current) drug therapy
CPT/HCPCS: 36415; 76770; 76856; 80048; 80076; 81001 ×2; 84703; 85025; 87086; 96374; 96375; 96376; 99284; J1170; J2405 ×3; J7030

== ENCOUNTER 2021-10-14 20:22 | Emergency (ER) | payer BC ==
[~2021-10-14] VITALS: Ht 172.7 cm; Wt 94.3 kg
[~2021-10-14 20:22] MED LIST changes: +HYDR2TAB4 PO
--- NOTE | 2021-10-14 20:46 | NUR ---
BIBS TO ER BED 3. AAOX4. NOT IN RESP DISTRESS. AMBULATORY. CAME IN FOR R FLANK PAIN AND LOWER ABD PAIN. PT REPORTS THIS HAPPENED TO HER AND FEELS LIKE WHEN SHE HAD UTI AND KIDNEY STONE. PAIN IS 9/10 SHARP THROBBING. MD WAS AT THE BEDSIDE. URINE WAS ALSO COLLECTED
--- NOTE | 2021-10-14 20:51 | NUR ---
URINE SPECIMEN SENT TO LAB.
[2021-10-14] MEDS ORDERED: HYDR-4303 PO (20:59)
[2021-10-14] MEDS ORDERED: CEPH500C2 PO (20:59)
[2021-10-14 21:04] VITALS: BP 129/75
[2021-10-14 21:16] LABS: BILIRUBIN,URINE NEGATIVE (NEGATIVE); COLOR,URINE YELLOW (YELLOW); LEUKOCYTE ESTERASE ,URINE TRACE (NEGATIVE); NITRITE, URINE NEGATIVE (NEGATIVE); PROTEIN,URINE NEGATIVE (NEGATIVE); UGLUCOSE NEGATIVE (NEGATIVE); UROBILINOGEN,URINE 0.2 EU/dL (0.2)
[2021-10-14 21:21] LABS: BACTERIA,URINE RARE /HPF (None Seen)
[2021-10-14 21:22] LABS: MUCUS,URINE Many /LPF (None Seen)
== END 2021-10-14 21:05 | disposition home or self-care (01) ==
LOC: ER 20:24
DX: N39.0 Urinary tract infection, site not specified (principal); Z90.49 Acquired absence of other specified parts of digestive tract; Z88.6 Allergy status to analgesic agent; Z79.899 Other long term (current) drug therapy
CPT/HCPCS: 81001; 84703-TC; 87086-TC

== ENCOUNTER 2021-11-15 12:28 | Emergency (ER) | payer BC ==
[~2021-11-15] VITALS: Ht 170.2 cm; Wt 95.3 kg
[~2021-11-15 12:28] MED LIST changes: +CEPH500C2 PO; +HYDR-4303 PO
--- NOTE | 2021-11-15 12:53 | NUR ---
BIBS C/O "Mid epigastric/abdominal pain started 1H ago. Nausea". AMBULATORY, PLACED ON BED, AAOX4, IN PAIN 10/10 PS.
[2021-11-15] MEDS ORDERED: IV NS 0.9% 1,000 ML BAG IV ONE (13:00)
[2021-11-15] MEDS ORDERED: MORPHINE SULFATE INJ 2 MG/ML DISP.SYRIN IV ONE (13:00)
[2021-11-15] MEDS ORDERED: ONDANSETRON HCL/PF 4 MG/2 ML VIAL IVP ONE (13:00)
[2021-11-15] MEDS ORDERED: HYDROMORPHONE 1 MG/1 ML DISP.SYRIN IV ONE (13:00)
--- NOTE | 2021-11-15 13:00 | NUR ---
BLOOD DRAWN AND URINE SAMPLE SENT TO LAB
[2021-11-15] MEDS ORDERED: ONDANSETRON HCL/PF 4 MG/2 ML VIAL ONE ×2 (13:10→15:00)
[2021-11-15] MEDS ORDERED: HYDROMORPHONE 1 MG/1 ML DISP.SYRIN ONE (13:11)
[2021-11-15 13:25] LABS: BASOPHILS # (AUTO) 0.1 K/uL (0.0-0.2); BASOPHILS % (AUTO) 0.9 % (0.0-2.0); EOSINOPHILS % (AUTO) 0.7 % (0.0-6.0); HEMATOCRIT 37 % (33-45); LYMPHOCYTES # (AUTO) 4.2 K/uL (0.8-4.8); LYMPHOCYTES % (AUTO) 36.3 % (20.0-44.0); MEAN CORPUSCULAR HGB CONC 33 g/dl (31.0-36.0); MEAN CORPUSCULAR VOLUME 88 fL (82-100); MONOCYTES # (AUTO) 0.9 K/uL (0.1-1.30); NEUTROPHILS # (AUTO) 6.2 K/uL (1.8-8.9); NEUTROPHILS % (AUTO) 54.1 % (43.0-81.0); PLATELET COUNT (AUTO) 327 K/uL (150-450); RED BLOOD CELL COUNT(AUTO) 4.19 MIL/uL (4.0-5.2); WHITE BLOOD COUNT (AUTO) 11.5 K/uL (4.3-11.0)
[2021-11-15] MEDS ORDERED: ONDANSETRON HCL/PF - ER 4 MG/2 ML VIAL IV ONE (13:30)
[2021-11-15 13:38] LABS: CALCIUM, SERUM 8.5 mg/dL (8.5-10.1); CREATININE 0.8 mg/dL (0.6-1.3); POTASSIUM 3.7 mmol/L (3.5-5.1)
[2021-11-15 13:43] LABS: ALBUMIN 3.7 g/dL (3.4-5.0); BILIRUBIN,DIRECT 0.1 mg/dL (0.0-0.2); BILIRUBIN,TOTAL 0.2 mg/dL (0.2-1.0); TOTAL PROTEIN, SERUM 7.7 g/dL (6.4-8.2)
[2021-11-15 13:45] LABS: BILIRUBIN,URINE NEGATIVE (NEGATIVE); COLOR,URINE YELLOW (YELLOW); LEUKOCYTE ESTERASE ,URINE SMALL (NEGATIVE); NITRITE, URINE NEGATIVE (NEGATIVE); PROTEIN,URINE NEGATIVE (NEGATIVE); UGLUCOSE NEGATIVE (NEGATIVE); UROBILINOGEN,URINE 0.2 EU/dL (0.2)
[2021-11-15 14:16] LABS: BACTERIA,URINE Many /HPF (None Seen)
[2021-11-15] MEDS ORDERED: HYDROCODONE/APAP 10/325MG TABLET ONE (14:26)
[2021-11-15] MEDS ORDERED: IBUPROFEN 600 MG TABLET ONE (14:26)
[2021-11-15] MEDS ORDERED: IBUPROFEN 600 MG TABLET PO ONE (14:30)
[2021-11-15] MEDS ORDERED: HYDROCODONE/APAP 10/325MG TABLET PO ONE (14:30)
[2021-11-15] MEDS ORDERED: HYDR-3972 PO (14:37)
[2021-11-15 15:13] VITALS: BP 122/77
--- NOTE | 2021-11-15 15:13 | NUR ---
IV removed. Catheter intact and site benign. Pressure and 4x4 applied to site. No bleeding noted.
--- NOTE | 2021-11-15 15:13 | NUR ---
Patient discharged to home in stable condition. Written and verbal after care instructions given. Patient verbalizes understanding of instruction.
== END 2021-11-15 15:14 | disposition home or self-care (01) ==
LOC: ER 12:30
DX: R10.13 Epigastric pain (principal); R31.29 Other microscopic hematuria; Z90.49 Acquired absence of other specified parts of digestive tract; Z88.6 Allergy status to analgesic agent; Z79.899 Other long term (current) drug therapy
CPT/HCPCS: 99284; 74176; 96374; 96361; 96375; 85025; 80048; 87086; 80076; 81001; 36415; J2405; J7030; J1170

== ENCOUNTER 2022-02-04 21:31 | Emergency (ER) | payer BC ==
[~2022-02-04] VITALS: Ht 172.7 cm; Wt 94.3 kg
[~2022-02-04 21:31] MED LIST changes: +HYDR-3972 PO
[2022-02-04 23:51] VITALS: BP 132/100
--- NOTE | 2022-02-05 00:33 | NUR ---
PT SIGNED WAIVER FORM RADIOLOGY AWARE
--- NOTE | 2022-02-05 00:48 | NUR ---
ER PHYSICIAN AT PT'S BEDSIDE
[2022-02-05] MEDS ORDERED: BENZ-13 PO (01:27)
[2022-02-05] MEDS ORDERED: IBUP-1955 PO (01:29)
--- NOTE | 2022-02-05 01:32 | NUR ---
Patient discharged to home in stable condition. Written and verbal after care instructions given. Patient verbalizes understanding of instruction.
== END 2022-02-05 01:35 | disposition home or self-care (01) ==
LOC: ER 21:35
DX: R05.9 Cough, unspecified (principal); R07.81 Pleurodynia; Z90.49 Acquired absence of other specified parts of digestive tract; Z88.6 Allergy status to analgesic agent; Z79.899 Other long term (current) drug therapy
CPT/HCPCS: 71046

== ENCOUNTER 2022-08-09 20:28 | Emergency (ER) | payer BC ==
[~2022-08-09] VITALS: Ht 172.7 cm; Wt 91.6 kg
[~2022-08-09 20:28] MED LIST changes: +BENZ-13 PO
--- NOTE | 2022-08-09 21:05 | NUR ---
URINE COLLECTED AND SENT TO LAB
[2022-08-09] MEDS ORDERED: ONDANSETRON 4 MG TAB.RAPDIS ONE (21:21)
[2022-08-09] MEDS ORDERED: oxyCODONE/APAP (5/325 MG) 1 UDTAB TABLET ONE (21:21)
[2022-08-09] MEDS ORDERED: ONDANSETRON 4 MG TAB.RAPDIS SL ONE (21:30)
[2022-08-09] MEDS ORDERED: oxyCODONE/APAP (5/325 MG) 1 UDTAB TABLET PO ONE (21:30)
[2022-08-09 21:57] LABS: BILIRUBIN,URINE NEGATIVE (NEGATIVE); COLOR,URINE YELLOW (YELLOW); LEUKOCYTE ESTERASE ,URINE NEGATIVE (NEGATIVE); NITRITE, URINE NEGATIVE (NEGATIVE); PH,URINE 6.5 (5.0-8.0); PROTEIN,URINE NEGATIVE (NEGATIVE); UGLUCOSE NEGATIVE (NEGATIVE)
[2022-08-09 22:22] LABS: BACTERIA,URINE None seen /HPF (None Seen); MUCUS,URINE Few /LPF (None Seen); WBC,URINE 0-2 /HPF (0-3)
[2022-08-09] MEDS ORDERED: HYDROMORPHONE 1 MG/1 ML DISP.SYRIN IV ONE (22:30)
[2022-08-09] MEDS ORDERED: KETOROLAC TROMETHAMINE INJ 30 MG/ML VIAL IV ONE (22:30)
[2022-08-09] MEDS ORDERED: diphenhydrAMINE HCL 50 MG/ML VIAL IV ONE (22:30)
[2022-08-09] MEDS ORDERED: HYDROMORPHONE 1 MG/1 ML DISP.SYRIN ONE (22:32)
[2022-08-09] MEDS ORDERED: diphenhydrAMINE HCL 50 MG/ML VIAL ONE (22:32)
[2022-08-09] MEDS ORDERED: KETOROLAC TROMETHAMINE INJ 30 MG/ML VIAL ONE (22:32)
--- NOTE | 2022-08-10 00:50 | NUR ---
TROLLEY CAR OPERATOR AT PT'S BEDSIDE
--- NOTE | 2022-08-10 00:59 | NUR ---
US TECH AT PT'S BEDSIDE
[2022-08-10 01:17] LABS: BASOPHILS % (AUTO) 0.3 % (0.0-2.0); EOSINOPHILS % (AUTO) 0.2 % (0.0-6.0); HEMATOCRIT 37 % (33-45); HEMOGLOBIN 11.7 g/dL (11.5-14.8); LYMPHOCYTES # (AUTO) 4.4 K/uL (0.8-4.8); LYMPHOCYTES % (AUTO) 33.9 % (20.0-44.0); MEAN CORPUSCULAR HGB CONC 32 g/dl (31.0-36.0); MEAN CORPUSCULAR VOLUME 92 fL (82-100); MONOCYTES # (AUTO) 0.8 K/uL (0.1-1.30); MONOCYTES % (AUTO) 6.4 % (2.0-12.0); NEUTROPHILS # (AUTO) 7.6 K/uL (1.8-8.9); NEUTROPHILS % (AUTO) 59.2 % (43.0-81.0); PLATELET COUNT (AUTO) 272 K/uL (150-450); WHITE BLOOD COUNT (AUTO) 12.9 K/uL (4.3-11.0)
[2022-08-10 01:28] LABS: ALBUMIN 3.8 g/dL (3.4-5.0); BILIRUBIN,DIRECT 0.1 mg/dL (0.0-0.2); BILIRUBIN,TOTAL 0.2 mg/dL (0.2-1.0); CALCIUM, SERUM 9.1 mg/dL (8.5-10.1); CREATININE 0.6 mg/dL (0.6-1.3); POTASSIUM 3.8 mmol/L (3.5-5.1); TOTAL PROTEIN, SERUM 7.7 g/dL (6.4-8.2)
--- NOTE | 2022-08-10 01:36 | NUR ---
U/S COMPLETED, PT IN PAIN. NOTIFIED.
[2022-08-10] MEDS ORDERED: HYDROMORPHONE 1 MG/1 ML DISP.SYRIN ONE ×3 (02:26→11:26)
[2022-08-10] MEDS ORDERED: HYDROMORPHONE 1 MG/1 ML DISP.SYRIN IV ONE ×3 (02:30→11:30)
--- NOTE | 2022-08-10 03:47 | NUR ---
COVID ANTIGEN SWAB COLLECTED AND SENT TO LAB
[2022-08-10] MEDS ORDERED: ONDANSETRON HCL/PF 4 MG/2 ML VIAL ONE (06:50)
[2022-08-10] MEDS ORDERED: ONDANSETRON HCL/PF - ER 4 MG/2 ML VIAL IV ONE (07:00)
[2022-08-10] MEDS: HYDROMORPHONE 1 MG/1 ML DISP.SYRIN IV ONE ×2 (07:07→07:13)
[2022-08-10] MEDS: ONDANSETRON HCL/PF - ER 4 MG/2 ML VIAL IV ONE ×2 (07:07→07:13)
--- NOTE | 2022-08-10 07:10 | NUR ---
RECEIVED PT IN BED. AOX3. ABLE TO MAKE NEEDS KNOWN. DENIES PAIN OR DISCOMFORT. NO RESP DISTRESS NOTED.
--- NOTE | 2022-08-10 07:10 | NUR ---
SPOKE TO FACE [facility] PHARMACY OPERATIONS MANAGER; ONLY ABLE TO ADMIT PT UNDER OBSERVATION. SO NOT ABLE TO ACCEPT UNDER OBS ADMISSION. [facility] IS TRYING TO FIND BED FROM [facility]
--- NOTE | 2022-08-10 07:44 | NUR ---
iv access inserted at lt HAND 22G
--- NOTE | 2022-08-10 08:06 | NUR ---
[facility] [phone]
--- NOTE | 2022-08-10 09:36 | NUR ---
DR. ROY SPEAKING WITH DR. BECKMAN OVER THE PHONE.
--- NOTE | 2022-08-10 10:03 | NUR ---
[facility] [phone] CALLED: PT ACCEPTED TO [facility] UNDER DR. BECKMAN TO ROOM 326-1 PLEASE CALL [phone] FOR REPORT. GIVING AUTH FOR TRANSPORT# [id number]. REQUESTING [facility] FOR TRANSPORT [phone].
--- NOTE | 2022-08-10 10:21 | NUR ---
[facility] [phone] NOT ABLE TO HAVE ANY UNITS AT THIS TIME PER OSMIN. AND NEED AUTH # [id number] FAXED FROM [facility].
--- NOTE | 2022-08-10 10:21 | NUR ---
CALLED [facility] AND SHE WILL ARRANGE TRANSPORT AND CALL US BACK.
--- NOTE | 2022-08-10 10:55 | NUR ---
CALLED [facility] FOR TRANSPORT ETA 1230 PER ALBERTO.
--- NOTE | 2022-08-10 11:15 | NUR ---
REPORT GIVEN TO ROSIO BOYD AT [facility]. AWAITING TRANSPORT AMBULANCE.
--- NOTE | 2022-08-10 11:39 | NUR ---
TRANSPO/ RESCUE 310 CONCRETE FOREMAN THE PATIENT AT RM 16
[2022-08-10 11:41] VITALS: BP 125/88
== END 2022-08-10 11:42 | disposition short-term general hospital (02) ==
LOC: ER 20:33
DX: R10.33 Periumbilical pain (principal); Z90.49 Acquired absence of other specified parts of digestive tract; Z79.899 Other long term (current) drug therapy; Z88.1 Allergy status to other antibiotic agents; Z20.822 Contact with and (suspected) exposure to COVID-19
CPT/HCPCS: 99285; 74176; 96374; 96375 ×2; 87086; 84703; 81001; 76856; 87426; 96376; 85025; 80048; 83690; 80076; 36415; J1200; J1885; Q0162; J1170 ×4; J2405 ×3; C9803

== ENCOUNTER 2022-11-05 01:43 | Emergency (ER) | payer BC, OTHER ==
[~2022-11-05] VITALS: Ht 170.2 cm; Wt 91.2 kg
[2022-11-05] MEDS ORDERED: ONDANSETRON HCL/PF 4 MG/2 ML VIAL IVP ONE (03:00)
[2022-11-05] MEDS ORDERED: IV NS 0.9% 1,000 ML BAG IV ONE (03:00)
[2022-11-05] MEDS ORDERED: KETOROLAC TROMETHAMINE INJ 30 MG/ML VIAL IV ONE (03:00)
[2022-11-05] MEDS ORDERED: PANTOPRAZOLE 40 MG VIAL IV ONE (03:00)
[2022-11-05] MEDS ORDERED: ONDANSETRON HCL/PF 4 MG/2 ML VIAL ONE (03:24)
[2022-11-05] MEDS ORDERED: KETOROLAC TROMETHAMINE 15 MG/ML VIAL ONE (03:24)
[2022-11-05] MEDS ORDERED: PANTOPRAZOLE 40 MG VIAL ONE (03:24)
[2022-11-05 03:29] LABS: APPEARANCE,URINE CLEAR (CLEAR); BILIRUBIN,URINE NEGATIVE (NEGATIVE); BLOOD, URINE 2+ Ery/uL (NEGATIVE); COLOR,URINE YELLOW (YELLOW); KETONES,URINE NEGATIVE (NEGATIVE); LEUKOCYTE ESTERASE ,URINE 1+ (NEGATIVE); NITRITE, URINE NEGATIVE (NEGATIVE); PROTEIN,URINE NEGATIVE (NEGATIVE); UGLUCOSE NEGATIVE (NEGATIVE); UROBILINOGEN,URINE 0.2 EU/dL (0.2)
[2022-11-05 03:30] LABS: ADD URINE CULTURE YES; BACTERIA,URINE Rare /HPF (None Seen); PREGNANCY TEST URINE QUAL NEGATIVE (NEGATIVE); SQUAMOUS EPITHELIAL CELL,UR Few /HPF (None Seen)
[2022-11-05] MEDS ORDERED: oxyCODONE/APAP (5/325 MG) 1 UDTAB TABLET PO ONE ×2 (04:00→06:00)
[2022-11-05] MEDS ORDERED: METOCLOPRAMIDE HCL 10 MG/2 ML VIAL IV ONE (04:00)
[2022-11-05] MEDS ORDERED: METOCLOPRAMIDE HCL 10 MG/2 ML VIAL ONE (04:03)
[2022-11-05] MEDS ORDERED: oxyCODONE/APAP (5/325 MG) 1 UDTAB TABLET ONE ×2 (04:03→05:49)
[2022-11-05 04:14] LABS: CALCIUM, SERUM 9.3 mg/dL (8.5-10.1); CREATININE 0.4 mg/dL (0.6-1.3); POTASSIUM 4.3 mmol/L (3.5-5.1)
[2022-11-05 04:25] LABS: ALBUMIN 3.9 g/dL (3.4-5.0); BILIRUBIN,TOTAL 0.2 mg/dL (0.2-1.0); TOTAL PROTEIN, SERUM 7.8 g/dL (6.4-8.2)
[2022-11-05] MEDS ORDERED: HYDROMORPHONE 1 MG/1 ML DISP.SYRIN ONE ×2 (05:51→08:43)
[2022-11-05] MEDS ORDERED: HYDROMORPHONE 1 MG/1 ML DISP.SYRIN IM ONE (06:00)
[2022-11-05 06:01] VITALS: TEMP 98.7
[2022-11-05 07:06] LABS: BASOPHILS # (AUTO) 0.1 K/uL (0.0-0.2); BASOPHILS % (AUTO) 0.6 % (0.0-2.0); EOSINOPHILS % (AUTO) 0.4 % (0.0-6.0); HEMATOCRIT 34 % (33-45); HEMOGLOBIN 11.2 g/dL (11.5-14.8); LYMPHOCYTES # (AUTO) 3.8 K/uL (0.8-4.8); LYMPHOCYTES % (AUTO) 31.7 % (20.0-44.0); MEAN CORPUSCULAR HEMOGLOBIN 29 PG (26.0-33.0); MEAN CORPUSCULAR HGB CONC 33 g/dl (31.0-36.0); MEAN CORPUSCULAR VOLUME 90 fL (82-100); MONOCYTES # (AUTO) 0.9 K/uL (0.1-1.30); NEUTROPHILS # (AUTO) 7.3 K/uL (1.8-8.9); NEUTROPHILS % (AUTO) 60.3 % (43.0-81.0); PLATELET COUNT (AUTO) 299 K/uL (150-450); RED BLOOD CELL COUNT(AUTO) 3.83 MIL/uL (4.0-5.2); RED CELL DISTRIBUTION WIDTH 14.2 % (11.5-15.0); WHITE BLOOD COUNT (AUTO) 12.1 K/uL (4.3-11.0)
[2022-11-05] MEDS ORDERED: HYDROMORPHONE 1 MG/1 ML DISP.SYRIN IV ONE (08:30)
[2022-11-05] MEDS ORDERED: CEPH500C2 PO (09:34)
[2022-11-05] MEDS ORDERED: IBUP-1955 PO (09:34)
[2022-11-05] MEDS ORDERED: ONDA4TAB5 PO (09:47)
[2022-11-05 09:59] VITALS: BP 125/78; O2SAT 100
== END 2022-11-05 10:02 | disposition home or self-care (01) ==
LOC: ER 01:49
DX: R10.13 Epigastric pain (principal); Z79.899 Other long term (current) drug therapy; Z90.49 Acquired absence of other specified parts of digestive tract; Z88.5 Allergy status to narcotic agent
CPT/HCPCS: 99285; 74176; 96374; 96375; 76856; 96361; 85025; 80048; 87086; 80076; 84703; 81001; 36415; 96372; L0172; J2765; J2405; J7030; C9113; J1170 ×2; J1885

== ENCOUNTER 2022-12-08 22:44 | Emergency (ER) | payer OTHER ==
[~2022-12-08] VITALS: Ht 172.7 cm; Wt 91.2 kg
[2022-12-08] MEDS ORDERED: KETOROLAC TROMETHAMINE INJ 30 MG/ML VIAL IV ONE (23:30)
[2022-12-08] MEDS ORDERED: KETOROLAC TROMETHAMINE INJ 30 MG/ML VIAL ONE (23:36)
[2022-12-08 23:49] LABS: APPEARANCE,URINE SLIGHTLY CLOUDY (CLEAR); BILIRUBIN,URINE NEGATIVE (NEGATIVE); BLOOD, URINE 2+ Ery/uL (NEGATIVE); COLOR,URINE YELLOW (YELLOW); KETONES,URINE NEGATIVE (NEGATIVE); LEUKOCYTE ESTERASE ,URINE 1+ (NEGATIVE); NITRITE, URINE NEGATIVE (NEGATIVE); PREGNANCY TEST URINE QUAL NEGATIVE (NEGATIVE); PROTEIN,URINE TRACE mg/dl (NEGATIVE); UGLUCOSE NEGATIVE (NEGATIVE)
[2022-12-08 23:54] LABS: BASOPHILS % (AUTO) 0.3 % (0.0-2.0); EOSINOPHILS # (AUTO) 0.1 K/uL (0.0-0.7); EOSINOPHILS % (AUTO) 0.6 % (0.0-6.0); HEMATOCRIT 37 % (33-45); LYMPHOCYTES # (AUTO) 3.8 K/uL (0.8-4.8); LYMPHOCYTES % (AUTO) 33.1 % (20.0-44.0); MEAN CORPUSCULAR HEMOGLOBIN 29 PG (26.0-33.0); MEAN CORPUSCULAR HGB CONC 32 g/dl (31.0-36.0); MEAN CORPUSCULAR VOLUME 89 fL (82-100); MONOCYTES # (AUTO) 0.8 K/uL (0.1-1.30); MONOCYTES % (AUTO) 7.4 % (2.0-12.0); NEUTROPHILS # (AUTO) 6.7 K/uL (1.8-8.9); NEUTROPHILS % (AUTO) 58.6 % (43.0-81.0); PLATELET COUNT (AUTO) 305 K/uL (150-450); RED BLOOD CELL COUNT(AUTO) 4.15 MIL/uL (4.0-5.2); RED CELL DISTRIBUTION WIDTH 14.6 % (11.5-15.0); WHITE BLOOD COUNT (AUTO) 11.4 K/uL (4.3-11.0)
[2022-12-08 23:58] LABS: ADD URINE CULTURE YES; BACTERIA,URINE Few /HPF (None Seen); SQUAMOUS EPITHELIAL CELL,UR Rare /HPF (None Seen)
[2022-12-09 00:07] LABS: CALCIUM, SERUM 8.7 mg/dL (8.5-10.1); CREATININE 0.8 mg/dL (0.6-1.3); POTASSIUM 3.6 mmol/L (3.5-5.1)
[2022-12-09 00:12] LABS: ALBUMIN 3.7 g/dL (3.4-5.0); BILIRUBIN,DIRECT 0.1 mg/dL (0.0-0.2); BILIRUBIN,TOTAL 0.2 mg/dL (0.2-1.0); TOTAL PROTEIN, SERUM 7.6 g/dL (6.4-8.2)
[2022-12-09] MEDS ORDERED: HYDROMORPHONE 1 MG/1 ML DISP.SYRIN ONE ×2 (00:19→00:55)
[2022-12-09] MEDS ORDERED: CEFTRIAXONE 1GM BAG (ER ONLY) 1 GM/50 ML PIGGYBACK IV ONE (00:30)
[2022-12-09] MEDS ORDERED: HYDROMORPHONE 1 MG/1 ML DISP.SYRIN IV ONE ×2 (00:30→01:00)
[2022-12-09] MEDS ORDERED: ONDANSETRON HCL/PF 4 MG/2 ML VIAL ONE (00:55)
[2022-12-09] MEDS ORDERED: CEPH500T PO (01:12)
[2022-12-09 01:27] VITALS: BP 115/78; TEMP 98.6; O2SAT 98
[2022-12-09] MEDS ORDERED: ONDANSETRON HCL/PF - ER 4 MG/2 ML VIAL IV ONE (01:30)
== END 2022-12-09 02:22 | disposition home or self-care (01) ==
LOC: ER 22:50
DX: N39.0 Urinary tract infection, site not specified (principal); F11.90 Opioid use, unspecified, uncomplicated; Z90.49 Acquired absence of other specified parts of digestive tract; Z88.8 Allergy status to other drugs, medicaments and biological substances
CPT/HCPCS: 99284; 96375 ×2; 85025; 80048; 87086; 83690; 80076; 84703; 81001; 36415; 96365; 96376; J1885; J2405; J0696; J1170 ×2

== ENCOUNTER 2023-11-09 19:01 | Emergency (ER) | payer BC ==
[~2023-11-09] VITALS: Ht 172.7 cm; Wt 93.4 kg
[~2023-11-09 19:01] MED LIST changes: +CEPH500T PO
[2023-11-09] MEDS ORDERED: ONDANSETRON HCL/PF 4 MG/2 ML VIAL ONE ×2 (21:13→23:40)
[2023-11-09] MEDS ORDERED: KETOROLAC TROMETHAMINE 15 MG/ML VIAL ONE ×2 (21:13→23:40)
[2023-11-09] MEDS: IV NS 0.9% 1,000 ML BAG IV ONE (21:14)
[2023-11-09] MEDS: ONDANSETRON HCL/PF 4 MG/2 ML VIAL IVP ONE (21:14)
[2023-11-09] MEDS: KETOROLAC TROMETHAMINE 15 MG/ML VIAL IV ONE ×2 (21:14→23:41)
[2023-11-09 21:30] LABS: BASOPHILS % (AUTO) 0.4 % (0.0-2.0); EOSINOPHILS % (AUTO) 0.4 % (0.0-6.0); HEMATOCRIT 38 % (33-45); HEMOGLOBIN 12.3 g/dL (11.5-14.8); LYMPHOCYTES # (AUTO) 2.9 K/uL (0.8-4.8); LYMPHOCYTES % (AUTO) 26.4 % (20.0-44.0); MEAN CORPUSCULAR HEMOGLOBIN 29 PG (26.0-33.0); MEAN CORPUSCULAR HGB CONC 33 g/dl (31.0-36.0); MEAN CORPUSCULAR VOLUME 90 fL (82-100); MONOCYTES # (AUTO) 0.8 K/uL (0.1-1.30); MONOCYTES % (AUTO) 7.4 % (2.0-12.0); NEUTROPHILS # (AUTO) 7.3 K/uL (1.8-8.9); NEUTROPHILS % (AUTO) 65.4 % (43.0-81.0); PLATELET COUNT (AUTO) 346 K/uL (150-450); RED BLOOD CELL COUNT(AUTO) 4.22 MIL/uL (4.0-5.2); RED CELL DISTRIBUTION WIDTH 13.7 % (11.5-15.0); WHITE BLOOD COUNT (AUTO) 11.1 K/uL (4.3-11.0)
[2023-11-09 21:32] LABS: PREGNANCY TEST URINE QUAL NEGATIVE (NEGATIVE)
[2023-11-09 21:38] LABS: CALCIUM, SERUM 9.1 mg/dL (8.5-10.1); CREATININE 0.7 mg/dL (0.6-1.3); POTASSIUM 3.6 mmol/L (3.5-5.1)
[2023-11-09 21:53] LABS: ALBUMIN 3.3 g/dL (3.4-5.0); BILIRUBIN,DIRECT 0.1 mg/dL (0.0-0.2); BILIRUBIN,TOTAL 0.3 mg/dL (0.2-1.0); TOTAL PROTEIN, SERUM 7.6 g/dL (6.4-8.2)
[2023-11-09] MEDS: ONDANSETRON HCL/PF - ER 4 MG/2 ML VIAL IV ONE (23:41)
[2023-11-10] MEDS ORDERED: OMEP20TA20 PO (02:30)
[2023-11-10 02:49] VITALS: BP 132/78; TEMP 98.6; O2SAT 100
== END 2023-11-10 02:50 | disposition home or self-care (01) ==
LOC: ER 19:01
DX: R10.32 Left lower quadrant pain (principal); R10.31 Right lower quadrant pain; R11.2 Nausea with vomiting, unspecified; R19.7 Diarrhea, unspecified; Z90.49 Acquired absence of other specified parts of digestive tract; Z88.5 Allergy status to narcotic agent
CPT/HCPCS: 99285; 74176; 96374; 96361; 96375; 96376; 85025; 80048; 83605; 83690; 80076; 84703; 36415; J2405 ×2; J7030; J1885 ×2